=== PATIENT | male | born 1955 | race Caucasian/White ===

== ENCOUNTER 2016-04-16 19:41 | Emergency (ER) | payer OTHER ==
[2016-04-16] MEDS ORDERED: ASPIRIN CHEWTAB 81 MG TABLET ONE (19:55)
[2016-04-16] MEDS ORDERED: Heparin Sodium 5000 unit/0.5ml syringe ONE (20:07)
[2016-04-16] MEDS ORDERED: SODIUM CHLORIDE 0.9% 1,000 ML ONE (20:07)
[2016-04-16] MEDS ORDERED: HEPARIN SODIUM PREMIX 500 ML IV ONE (20:08)
[2016-04-16 20:12] LABS: ABSOLUTE NEUTROPHIL COUNT 5.3 K/mm3 (1.8-7.7); BASO # 0.1 K/mm3 (0.0-0.2); BASO % 0.5 % (0.2-1.0); EOS # 0.4 (0.0-0.5); EOS % 3.7 % (0.9-2.9); HEMATOCRIT 44.9 % (32.0-52.0); IMM NEUT% 0.3 % (0-1); LYMPH % 38.4 % (15-45); MEAN CELL VOLUME 85.4 fl (80.0-94.0); MEAN CORPUSCULAR HEMOGLOBIN 28.5 pg (27.0-31.0); MEAN CORPUSCULAR HGB CONC 33.4 g/dl (33.0-37.0); MEAN PLATELET VOLUME 13.5 fl (7.4-10.4); MONO # 0.7 (0.0-0.8); MONO % 6.5 % (4-12); NEUT % 50.6 % (43-75); PLATELET COUNT 173 K/mm3 (130-400); RED CELL DISTRIBUTION WIDTH 13.2 % (11.5-14.5)
[2016-04-16 20:37] LABS: ALB/GLOB RATIO 1.5 (>1.0); ALBUMIN 4.4 gm/dL (3.5-5.7); CALCIUM 9.4 mg/dL (8.6-10.3)
--- NOTE | 2016-04-16 21:02 | RAD ---
PORTABLE CHEST RADIOGRAPH HISTORY: Chest pain. Frontal portable chest radiograph dated 04/16/2016. COMPARISON: None. FINDINGS: FOCAL AIRSPACE OPACITY: No gross airspace consolidation. PLEURAL EFFUSION: None. CARDIOMEDIASTINAL SILHOUETTE: Nonenlarged. PNEUMOTHORAX: None identified. OSSEOUS STRUCTURES: No grossly destructive lesions. IMPRESSION: No acute cardiopulmonary process noted.
== END 2016-04-16 20:49 | disposition short-term general hospital (02) ==
LOC: ED 19:41
DX: I21.3 ST elevation (STEMI) myocardial infarction of unspecified site (principal); I47.1 Supraventricular tachycardia; E11.9 Type 2 diabetes mellitus without complications; Z79.84 Long term (current) use of oral hypoglycemic drugs
CPT/HCPCS: 83690; 85025; 80053; 84484; 71010; 99284; 96374; 93005 ×2; 99285; A9270; J1644; J7030